=== PATIENT | male | born 1960 | race Caucasian/White ===

== ENCOUNTER → 2017-01-01 | Outpatient (CLI) | payer BC ==
--- NOTE | ~2017-01-01 | US85 ---
[facility] A Service of [facility] RADIOLOGY TEXT RESULTS PATIENT: LALA KAMINSKI LOCATION: SNIV : 60 UNIT #: [id number] AGE: [address]: DEB LOYOLA SEX: M ORDER DR: [id number] [place] [id number] O MR#: [id number] Acc #: [id number] NAME: LALA KAMINSKI : 1960 SEX: M STUDY DATE/TIME: 01/01/2017 8:54 UNIT: SNIV ROOM: STUDY DESCRIPTION: [facility] Attending Physician: Deb Loyola Aprn Referring Physician: Deb Loyola Aprn Ordering Physician: Deb Loyola Aprn Primary Care Physician: Deb Loyola Aprn MEDICAL IMAGING REPORT This report is preliminary unless electronic signature is present. EXAM Left lower extremity venous Doppler 01/01/2017 HISTORY Left leg swelling after injury 2 weeks ago. COMPARISON None. TECHNIQUE Venous ultrasound examination of the left lower extremity was performed using grayscale, spectral Doppler and color flow Doppler imaging. FINDINGS The examination is negative. There is no evidence of left lower extremity deep venous thrombus from the groin to the lower calf. Visualized greater saphenous vein is also patent. IMPRESSION Negative examination. No evidence of left lower extremity deep venous thrombosis. Dictated by... Vernon Caba M.D. THIS IS AN ELECTRONICALLY VERIFIED REPORT Vernon Caba M.D. at 01/06/2017 9:47 AM [facility] A Service of [facility] RADIOLOGY TEXT RESULTS PATIENT: LALA KAMINSKI LOCATION: SNIV : 60 UNIT #: [id number] AGE: [address]: DEB LOYOLA SEX: M ORDER DR: Shelli TD: 01/01/2017 13:50 JOB #: [id number] MEDICAL IMAGING REPORT Page 1 of 1
== END | disposition home or self-care (01) ==
LOC: SNIV 08:19
DX: R60.0 Localized edema (principal)
CPT/HCPCS: 93971